=== PATIENT | male | born 1965 | race Caucasian/White ===

== ENCOUNTER 2018-07-23 23:09 | Emergency (ER) | payer BC ==
[2018-07-23 23:09] VITALS: BMI 38.0
[2018-07-23 23:32] VITALS: BP 112/81; PULSE 82; RESP 16; TEMP 98; O2SAT 95
--- NOTE | 2018-07-24 00:03 | C.PDOC ---
History Of Present Illness 52 year old male, whose past medical history includes chronic cervical radiculopathy for the past 2 years, presents to the ED for evaluation of worsened left arm pain which began today. Patient also has a past history of multiple herniated discs in his neck and is currently seeing a chiropractor that is "adjusting him". Patient has been using kinesiology tapes on the afflicted area and taking ibuprofen and vicodin for the pain. He reports the pain as being more severe than usual and as a "stabbing and shooting pain" radiating from neck to his left arm. Patient also reports a burning sensation throughout his left arm that is increased with lifting the arm. Patient reports experiencing palpitations in the waiting room that have since resolved. Patient denies chest pain, extremity numbness/weakness or any recent trauma/injury. Chief Complaint (Nursing): Upper Extremity Problem/Injury History Per: Patient History/Exam Limitations: no limitations Onset/Duration Of Symptoms: Other (chronic, 2 years ) Current Symptoms Are (Timing): Worse Quality: Sharp, Other (stabbing and shooting pains) Exacerbating Factor(s): Other (worsens with lifting of the left arm ) Past Medical History Reviewed: Historical Data, Nursing Documentation, Vital Signs Vital Signs: Last Vital Signs Temp 98.0 F 07/23/18 23:26 Pulse 82 07/23/18 23:26 Resp 16 07/23/18 23:26 BP 112/81 07/23/18 23:26 Pulse Ox 95 07/23/18 23:26 - Medical History PMH: Hypothyroidism, Kidney Stones, Pancreatitis Surgical History: Cholecystectomy - [facility] EXCISION THYROID LESION (02/03/13) PERCUTAN NEEDLE BX OF THYROID GLAND (09/04/04) Family History: States: Unknown Family Hx - Social History Hx Tobacco Use: No Hx Alcohol Use: No Hx Substance Use: No - Immunization History Hx Tetanus Toxoid Vaccination: Yes Hx Influenza Vaccination: Yes Hx Pneumococcal Vaccination: No Review Of Systems Constitutional: Negative for: Fever, Chills, Weakness Eyes: Negative for: Redness Cardiovascular: Positive for: Palpitations. Negative for: Chest Pain Respiratory: Negative for: Cough, Shortness of Breath Gastrointestinal: Negative for: Nausea, Vomiting, Abdominal Pain Musculoskeletal: Positive for: Neck Pain, Arm Pain (left ) Neurological: Negative for: Weakness, Numbness, Dizziness Physical Exam - Physical Exam Appears: Well, Non-toxic, No Acute Distress Skin: Normal Color, Warm, Dry, No Rash Head: Atraumatic, Normacephalic Eye(s): bilateral: Normal Inspection (no scleral icterus ), PERRL, EOMI Neck: Normal ROM, Supple Chest: Symmetrical, No Deformity Respiratory: No Accessory Muscle Use, Other (normal inspiratory effort ) Extremity: Capillary Refill (< 2 seconds), Other (pain with lifting of the left arm, normal passive range of motion of left arm. ) Extremity: Bilateral: Atraumatic, Normal Color And Temperature (no discoloration ) Pulses: Left Radial: Normal, Right Radial: Normal Neurological/Psych: Oriented x3, Normal Speech, Normal Cognition, Normal Cranial Nerves (grossly intact ), Normal Sensation ED Course And Treatment ECG: Interpreted By Me, Viewed By Me ECG Rhythm: PVC (2) O2 Sat by Pulse Oximetry: 95 (RA) Medical Decision Making Medical Decision Making: Impression: 52 year old with complaints of worsened chronic cervical radiculopathy Plan: EKG was ordered for the patient. Patient is already taking NSAIDs and opiates. Patient was given gabapentin PO and steroids to alleviate the pain. Gabapentin PO was prescribed for only 10 days and will be discontinued by the patient's PMD. The patient was consulted on how to take the gabapentin and understood the course for taking it. Patient was advised to follow up with the PMD within 1-2 days. Patient is advised to return to the ED if symptoms persist or worsen. Disposition Counseled Patient/Family Regarding: Diagnosis, Need For Followup, Rx Given - Disposition Disposition: HOME/ ROUTINE Disposition Time: 00:17 Condition: STABLE Prescriptions: Gabapentin 300 mg PO TID #30 capsule Prednisone [Deltasone] 40 mg PO DAILY #8 tablet Instructions: Radiculopathy (DC) Forms: [facility] (Italian), General Discharge Instructions - Clinical Impression Clinical Impression: Cervical radiculopathy - PA / [employer] / Resident Statement MD/DO has reviewed & agrees with the documentation as recorded. (Izzy Rivas) - Scribe Statement The provider has reviewed the documentation as recorded by the Scribe (Izzy Rivas) All medical record entries made by the Scribe were at my direction and personally dictated by me. I have reviewed the chart and agree that the record accurately reflects my personal performance of the history, physical exam, medical decision making, and the department course for this patient. I have also personally directed, reviewed, and agree with the discharge instructions and disposition.
--- NOTE | 2018-07-24 19:09 | CARD ---
APPROVED REPORT Date of service: 07/23/2018 EKG Measurement Heart [id number] <Conclusion> Sinus rhythm with occasional premature ventricular complexes Left axis deviation Right bundle branch block Possible Lateral infarct, age undetermined Abnormal ECG
== END 2018-07-24 00:21 | disposition home or self-care (01) ==
LOC: C.ER 23:09
DX: M54.12 Radiculopathy, cervical region (principal); E03.9 Hypothyroidism, unspecified